=== PATIENT | female | born 1955 | race Caucasian/White ===

== ENCOUNTER 2024-10-02 10:32 | Inpatient (IN) | payer MEDICARE, MEDICAID ==
[~2024-10-02] VITALS: Ht 170.2 cm; Wt 80.0 kg
[2024-10-02 10:46] VITALS: O2SAT 99
[2024-10-02 11:24] LABS: BASOPHILS % 0.4 % (0.0-2.0); DIFFERENTIAL COMMENT 0; EOSINOPHILS % 0.9 % (0.0-5.0); HEMATOCRIT. 30.6 % (36.0-48.0); HEMOGLOBIN. 9.6 g/dL (12.0-16.0); LYMPHOCYTES % 31.2 % (20.0-50.0); MEAN CORPUSCULAR HEMOGLOBIN 23.1 pg (28.0-32.0); MEAN CORPUSCULAR HGB CONC 31.5 g/dL (31.0-37.0); MEAN CORPUSCULAR VOLUME 73.3 fL (81.0-99.0); MEAN PLATELET VOLUME 8.8 fl (7.4-10.4); NEUTROPHILS % 60.5 % (40.0-76.0); PLATELET 250 x1000/uL (130-400); RED BLOOD CELL COUNT 4.17 mill/uL (4.2-5.4); RED CELL DISTRIBUTION WIDTH 16.6 % (11.6-14.6); WHITE BLOOD COUNT 6.2 x1000/uL (4.5-11.0)
[2024-10-02 11:41] LABS: CARBON DIOXIDE 15 mEq/L (21-32); CHLORIDE 111 mEq/L (98-107); POTASSIUM 4.3 mEq/L (3.5-5.1); SODIUM 141 mEq/L (136-145)
[2024-10-02 11:42] LABS: CALCIUM 9.6 mg/dL (8.7-10.4)
[2024-10-02 11:45] LABS: D-DIMER 0.92 mg/L FEU (<0.50); INR 0.9
[2024-10-02 11:46] LABS: CREATININE 3.3 mg/dL (0.6-1.0); GLUCOSE 120 mg/dL (70-105)
[2024-10-02 11:47] LABS: TROPONIN I HIGH SENSITIVITY 26 ng/L (3.0-34); UREA NITROGEN BLOOD 49 mg/dL (9-23)
[2024-10-02 11:48] LABS: ALANINE AMINOTRANSFERASE 38 IU/L (10-49); ALBUMIN 4.4 g/dL (3.2-4.8); ASPARTATE AMINOTRANSFERASE 37 IU/L (<34); LACTATE DEHYDROGENASE 219 IU/L (120-246)
[2024-10-02 11:49] LABS: BILIRUBIN DIRECT 0.1 mg/dL (<=3.0); BILIRUBIN TOTAL 0.4 mg/dL (0.1-1.0); PROTEIN TOTAL 7.4 g/dL (6.0-8.3)
[2024-10-02 11:53] LABS: LACTIC ACID 4.2 mmol/L (0.4-2.0)
[2024-10-02] MEDS: SODIUM CHLORIDE 0.9% 1,000 ML IV ONE (12:33)
[2024-10-02] MEDS: ONDANSETRON HCL 4MG/2ML INJ IV ONE (12:34)
[2024-10-02] MEDS: AZITHROMYCIN 500 MG TABLET PO ONE (12:34)
[2024-10-02] MEDS: MORPHINE SULFATE 4 MG/ML INJ (FOR IV/IM USE) IV ONE (12:34)
[2024-10-02 12:40] LABS: BG BASE EXCESS -6.5 mmol/L (-2.0-3.0); BG CARBOXYHEMOGLOBIN 0.3 % (0.5-1.5); BG DEOXYHEMOGLOBIN 1.8 % (0.0-5.0); BG FRACTION INSPIRED OXYGEN 21; BG HCO3 ACT 14.3 mmol/L (21.0-28.0); BG METHEMOGLOBIN 0.3 % (0.5-1.5); BG OXYGEN SATURATION 98.2 % (94.0-98.0); BG OXYHEMOGLOBIN 97.6 % (94.0-98.0); BG PCO2 17.5 mmHg (32.0-45.0); BG PH 7.531 (7.350-7.450); BG PO2 100.8 mmHg (83.0-108.0); BG SAMPLE SITE RIGHT BRACHIAL; BG TOTAL HEMOGLOBIN 10.1 g/dL (12.0-16.0); BG VENT MODE ROOM AIR
[2024-10-02] MEDS: CEFTRIAXONE 2GM/50ML 50 ML IV ONE (12:53)
[2024-10-02 13:40] VITALS: BP 153/77; PULSE 73; RESP 15; TEMP 36.9
[2024-10-02] MEDS: SODIUM CHLORIDE 0.9% 1,000 ML IV SCH (14:41)
[2024-10-02 16:00] VITALS: BP 132/61; PULSE 64; RESP 16; TEMP 36.6; O2SAT 98
[2024-10-02] MEDS: ACETAMINOPHEN 325MG TABLET PO PRN (17:03)
[2024-10-02] MEDS: ONDANSETRON HCL 4MG/2ML INJ IV PRN (17:15)
[2024-10-02] MEDS: MORPHINE SULFATE 4 MG/ML INJ (FOR IV/IM USE) IM NR (17:57)
[2024-10-02 18:15] LABS: CLARITY URINE CLEAR (CLEAR); COLOR URINE YELLOW (YELLOW); GLUCOSE URINE NEGATIVE (NEGATIVE); KETONES URINE NEGATIVE (NEGATIVE); LEUKOCYTE ESTERASE URINE NEGATIVE (NEGATIVE); NITRITE URINE NEGATIVE (NEGATIVE); OCCULT BLOOD URINE TRACE (NEGATIVE); PROTEIN URINE 2+ (NEGATIVE); SPECIFIC GRAVITY URINE 1.014 (1.005-1.030); UROBILINOGEN URINE 0.2 E.U./dL (0.2-1.0)
[2024-10-02 18:33] LABS: BACTERIA URINE TRACE; SQUAMOUS EPITHELIAL CELL URINE 1+ /lpf (RARE/1+); WBC URINE 0-2 /hpf (0-2)
[2024-10-02 19:24] LABS: INFLUENZA TYPE A Presumptive Negative (Pres. Neg.)
[2024-10-02 19:25] LABS: INFLUENZA TYPE B Presumptive Negative (Pres. Neg.)
[2024-10-02 19:27] LABS: RESPIRATORY SYNCYTIAL VIRUS Not Detected (Not Detectd)
== END 2024-10-02 19:30 | disposition left against medical advice (07) | DRG 392 ==
LOC: ER 10:32 → 5WST 12:39 → EDBEDREQTM 12:49 → EDBEDREQ 12:49
PROVIDERS: ADMIT Internal Medicine; ATTEND Internal Medicine
DX: K52.9 Noninfective gastroenteritis and colitis, unspecified (principal); I13.0 Hypertensive heart and chronic kidney disease with heart failure and stage 1 through stage 4 chronic kidney disease, or unspecified chronic kidney disease; E87.20 Acidosis, unspecified; N17.9 Acute kidney failure, unspecified; F41.9 Anxiety disorder, unspecified; Z20.822 Contact with and (suspected) exposure to COVID-19; E11.22 Type 2 diabetes mellitus with diabetic chronic kidney disease; Z53.29 Procedure and treatment not carried out because of patient's decision for other reasons; E78.00 Pure hypercholesterolemia, unspecified; I50.9 Heart failure, unspecified; R06.00 Dyspnea, unspecified; Z55.6 Problems related to health literacy
CPT/HCPCS: 36415; 36600; 71045; 74176; 80048; 80076; 81003; 82375; 82805; 82962; 83605; 83615; 83880; 84145; 84484; 85025; 85379; 87420; 87426; 87804; 93005; 99291; J0696; J2270; J2405; J7030